=== PATIENT | male | born 1960 | race American Indian/Alaskan Native ===

== ENCOUNTER 2016-11-05 09:13 | Outpatient (CLI) | payer OTHER ==
--- NOTE | 2016-11-05 10:05 | XRay Report ---
Right knee 3 views. History: Knee pain. Findings: There is moderate narrowing of the joint space especially medially with secondary hypertrophic changes seen at the articular margins. There are no fractures or other acute findings. There is narrowing of the patellofemoral joint. There is extensive calcification in the patellar tendon. Mild calcification is seen above the patella, probably in the quadriceps tendon. Impression: Tricompartmental osteoarthritis. Tendinous calcifications may be due to chronic tendinitis.
== END 2016-11-05 09:14 | disposition home or self-care (01) ==
LOC: SPVIMAG 09:13
DX: M17.11 Unilateral primary osteoarthritis, right knee (principal); M25.861 Other specified joint disorders, right knee

== ENCOUNTER 2017-10-06 13:58 | Outpatient (CLI) | payer BC ==
--- NOTE | 2017-10-07 07:41 | XRay Report ---
FINAL REPORT EXAM: XR SPINE LUMBOSACRAL 2-3V HISTORY: BACK PAIN TECHNIQUE: Three views of the lumbar spine were submitted. FINDINGS: The disc heights and alignment are fairly well maintained. There is no evidence of fracture or malalignment. The SI joints appear normal. The soft tissues are unremarkable. IMPRESSION: No acute process identified
== END 2017-10-06 13:59 | disposition home or self-care (01) ==
LOC: XRAY 13:58
DX: M54.5 Low back pain (principal)
CPT/HCPCS: 72100

== ENCOUNTER 2018-11-26 10:00 | Day surgery (SDC) | payer OTHER ==
[~2018-11-26 10:00] MED LIST: DIPRIVAN 10 MG/ML IV ONE; NACL 0.9% 1000 ML 1,000 ML IV SCH
--- NOTE | 2018-11-26 10:29 | Anesthesia Day of Surgery ---
Anesthesia Day of Surgery - Day of Surgery Patient Examined: Yes Patient H&P Reviewed: Yes Patient is NPO: Yes
--- NOTE | 2018-11-26 10:35 | Anesthesia Consultation ---
Anesthesia Consult and Med Hx Date of service: 11/26/18 - Airway Anesthetic Teeth Evaluation: Good ROM Head & Neck: Adequate Mental/Hyoid Distance: Adequate Mallampati Class: Class I Intubation Access Assessment: Good - Pre-Operative Health Status ASA Pre-Surgery Classification: ASA2 Proposed Anesthetic Plan: MAC - Cardiovascular System Hx Hypertension: Yes
[2018-11-26] MEDS ORDERED: WATER FOR IRRIG STERILE IR ONE (10:49)
[2018-11-26] MEDS ORDERED: WATER FOR IRRIG STERILE ONE (12:12)
--- NOTE | 2018-11-26 12:42 | Operative Report ---
Operative Report Operative Report: Date of procedure: 11/26/2018 Procedure: Colonoscopy with Snare polypectomy, Submucosal injection with janusz vation of polyp, Multiple Hot Biopsy Polypectomies, Ablation of sigmoid colon polyps. Attending physician: Ilya Coats M.D. Parking Garage Manager: Ilya Coats M.D. Indication: Patient is a 58-year-old male who presents for screening colonoscopy. Patient has a past history of colon polyps. This colonoscopy serves to evaluate patient so that treatment may be directed based on the findings. Consent: Informed consent was obtained after advising the patient and family regarding nature of this procedure, its indications, potential benefits as well as possible complications including but not limited to bleeding perforation and adverse reaction to medication, infection as well as other cardiopulmonary complications. An informed written and verbal consent was then obtained after due opportunity was provided for questions and answers. Monitoring: Patient was monitored continuously with pulse oximetry and electrocardiographic recordings as well as blood pressure recordings. Vital signs remained stable throughout this procedure with no untoward events. Preoperative assessment: Patient was assessed immediately prior to this procedure for capacity to tolerate monitored anesthesia care and moderate sedation as well as general anesthesia. Patient's ASA classification is 2, Mallampati class is 2, Hyomental distance is 3. Instrument: Olympus video colonoscope. Medications: Propofol given intravenously in divided doses. For details please refer to anesthesia records. Description of procedure: Patient was placed in the left lateral decubitus position after achieving sedation, a digital rectal examination was performed following which the colonoscope was introduced into the anal verge and advanced to the cecum which was identified by the cecal valve, the appendiceal orifice, as well as by the cecal strap and direct transillumination. The colonoscope was subsequently withdrawn with careful inspection of all mucosal surfaces. Patient tolerated this procedure well and was subsequently taken to the recovery room. The following findings were noted. Findings: Patient had a sessile polyp seen in the ascending colon measuring about 8 mm. This was elevated with submucosal injection of saline and removed by snare electrocautery and retrieved. The remainder of the polyp was removed by avulsion using hot biopsy forceps and the base was ablated. There were multiple diminutive polyps in the sigmoid colon which were removed by hot biopsy polypectomy and retrieved. Also in the polyp base was ablated. There was substantial retained stool seen throughout the colon. There were diverticula seen in the sigmoid and descending colon. The colon was moderately tortuous. Patient was noted to have prominent large internal hemorrhoids seen on the retroflexed view at the anal verge. Impression: Ascending polyp status post snare polypectomy and submucosal injection Sigmoid colon colon polyps status post hot biopsy polypectomy and ablation. Diverticular disease of the colon. Prominent internal hemorrhoids. Retained stool. Plan: Follow pathology report. High-fiber diet. Consider repeat colonoscopy in one year due to retained stool.
--- NOTE | 2018-11-26 12:45 | Discharge Summary ---
Short Stay Discharge Plan Activity: advance as tolerated Weight Bearing Status: Weight Bear as Tolerated Diet: regular Additional Instructions: Post Sedation D/C Instructions When you return home you may resume your regular diet unless otherwise directed. Go directly home from the hospital and rest quietly. You may resume normal activities tomorrow. Do NOT drive, return to work, operate any machinery or make any important personal or business decisions today. Do NOT drink any alcohol or take nerve or sleeping drugs. They add to the effects of the medicine still present in your body. Follow up with: PRIMARY CARE [Primary Care Provider] - 7 Days
[2018-11-26 13:10] VITALS: BP 125/88
== END 2018-11-26 10:01 | disposition home or self-care (01) ==
LOC: GIO 10:00
PROVIDERS: ATTEND Internal Medicine Gastroenterology
DX: Z12.11 Encounter for screening for malignant neoplasm of colon (principal); D12.2 Benign neoplasm of ascending colon; K63.5 Polyp of colon; K57.30 Diverticulosis of large intestine without perforation or abscess without bleeding; K64.8 Other hemorrhoids; G47.30 Sleep apnea, unspecified; I10 Essential (primary) hypertension; Z87.891 Personal history of nicotine dependence; Z90.13 Acquired absence of bilateral breasts and nipples; Z88.0 Allergy status to penicillin; Z79.899 Other long term (current) drug therapy
CPT/HCPCS: 88305; J2704; J7030